=== PATIENT | female | born 1980 | race Asian ===

== ENCOUNTER → 2021-08-10 15:42 | Outpatient (CLI) | payer OTHER, MEDICAID, SELFPAY ==
[2021-08-10 16:22] LABS: COVID19 -Nasal RAPID Negative (Negative)
== END ==
PROVIDERS: Family Provider Obstetrics & Gynecology; Visit Provider Nurse Practitioner Family
DX: Z20.822 Contact with and (suspected) exposure to COVID-19 (principal); J02.9 Acute pharyngitis, unspecified
CPT/HCPCS: 87635

== ENCOUNTER → 2024-05-02 08:26 | Outpatient (CLI) | payer OTHER, MEDICAID, SELFPAY ==
--- NOTE | 2024-05-02 | DI.US.S_ITS ---
PROCEDURE: US PELVIC COMPLETE INDICATIONS: PELVIC PAIN TECHNIQUE: Real-time scanning was performed of the pelvic organs, with image documentation. Additional endovaginal scanning was necessary due to incomplete visualization of the adnexal and endometrial structures by transabdominal scanning. COMPARISON: US, OB COMPLETE 14WKS OR MORE, 03/17/2016, 16:14. FINDINGS: Uterus: Uterus is anteverted and normal in size at 7.4 x 3.4 cm. The myometrium is heterogeneous. The endometrium measures 5 mm combined thickness. Small cystic focus is present within the endometrium measuring 5 mm. Ovaries: The right ovary measures 1.9 x 1.3 x 1.4 cm, with a calculated ovarian volume of 1.7 cc. The left ovary measures 2.3 by 2.9 x 1.0 cm, with a calculated ovarian volume of 1.2 cc. The ovaries have a normal sonographic appearance. Less than 12 follicles can be seen in each ovary. No adnexal masses are seen. Other: No pathologic free abdominal or pelvic fluid. IMPRESSION: Small cystic focus measuring 5 mm is present within the endometrium overall nonspecific. We strive to produce accurate, complete, and clear reports of imaging services. To assist us in improving patient care, this report was composed using standard report templates and voice recognition software. Therefore, it may contain abnormal punctuation, insertions and/or omissions. Occasional wrong-word or sound-alike substitutions may occur. Though we review the report and make efforts to correct it, we do recommend that the report be read carefully in proper context to recognize any text inaccuracies. Dictated by: Fabiana Denise M.D. on 05/02/2024 at 15:08 Approved by: Fabiana Denise M.D. on 05/02/2024 at 15:10
== END ==
PROVIDERS: Family Provider Obstetrics & Gynecology; Referring Provider Registered Nurse; Visit Provider Registered Nurse
DX: R10.2 Pelvic and perineal pain (principal)
CPT/HCPCS: 76856

== ENCOUNTER 2024-05-04 15:11 | Emergency (ER) | payer OTHER, MEDICAID, SELFPAY ==
[2024-05-04] VITALS (9 sets, daily range): BP systolic 116–141; BP diastolic 53–83; PULSE 63–84; RESP 12–18; TEMP 36.6; O2SAT 96–100; BMI 32.5
[2024-05-04 16:02] LABS: Add Manual Diff / Slide Review NO; Basophils Absolute Auto 0 /uL (0-100); Basophils Percent Auto 0.6 % (0-2); Eosinophils Absolute Auto 200 /uL (0-450); Eosinophils Percent Auto 1.9 % (2-4); Hematocrit 44.2 % (36-46); Hemoglobin 15.1 g/dL (12.0-16.0); Lymphocytes Absolute Auto 2300 /uL (1100-4500); Lymphocytes Percent Auto 28.2 % (25-40); Mean Corpuscular HGB Conc 34.1 % (30-36); Mean Corpuscular Hemoglobin 31.5 PG (26-34); Mean Corpuscular Volume 92.3 fL (80-100); Monocytes Absolute Auto 400 /uL (0-900); Monocytes Percent Auto 4.6 % (3-14); Neutrophils Absolute Auto 5400 /uL (1500-7000); Neutrophils Percent Auto 64.7 % (50-75); Platelet Count 406 X10^3/uL (150-400); Red Blood Cell Count 4.79 X10^6/uL (4.0-5.2); Red Cell Distribution Width 12.9 % (11.6-14.8); White Blood Cell Count 8.3 X10^3/uL (4.5-11.0)
[2024-05-04 16:23] LABS: BUN Creatinine Ratio 8.2 (6-22); Blood Urea Nitrogen 7 mg/dL (7-17); Calcium 8.9 mg/dL (8.4-10.2); Carbon Dioxide 23 mmol/L (22-32); Chloride 111 mmol/L (98-107); Estimated Glomerular Filt Rate > 60 mL/min (>60); Glucose 126 mg/dL (70-100); HEMOLYSIS 16 (0-50); Potassium 4.2 mmol/L (3.4-5.1); Sodium 141 mmol/L (137-145)
[2024-05-04 16:30] LABS: Bacteria Urine None Seen; RBC Urine None Seen (0-5/HPF); Squamous Epithelial Cell Urine 0-1 /HPF (0-5/HPF); Urine Volume 10mL (spun); WBC Urine None Seen (0-5/HPF)
[2024-05-04 16:31] LABS: Culture Indicated Urine Cult Not Indicated
--- NOTE | 2024-05-05 01:54 | ED_ITS ---
HPI - Female Genitourinary General Chief complaint: Urogenital-Female Stated complaint: thinks having kidney issues Time Seen by Provider: 05/04/24 15:46 Source: patient Mode of arrival: Ambulatory History of Present Illness HPI Narrative: Patient left without seeing provider Related Data Previous Rx's Medication Instructions Recorded cyclobenzaprine 5 mg tablet 5 mg PO BEDTIME PRN muscle spasm 09/08/21 #10 tabs Allergies Allergy/AdvReac Type Severity Reaction Status Date / Time No Known Drug Allergies Allergy Verified 09/08/21 13:53 Exam Initial Vital Signs Initial Vital Signs: Vital Signs Temperature 97.8 F 05/04/24 15:19 Pulse Rate 84 05/04/24 15:19 Respiratory Rate 12 05/04/24 15:19 Blood Pressure 131/69 05/04/24 15:19 Pulse Oximetry 96 05/04/24 15:19 Oxygen Delivery Method Room Air 05/04/24 15:19 Course Vital Signs Vital signs: Vital Signs - 8 hr 05/04/24 19:15 05/04/24 20:00 05/04/24 20:04 Pulse Rate 72 68 72 Respiratory Rate 16 18 Blood Pressure 141/61 H 120/53 L Pulse Oximetry 97 98 100 Oxygen Delivery Method Room Air Room Air 05/04/24 20:30 05/04/24 20:30 05/04/24 21:00 Pulse Rate 68 69 Respiratory Rate Blood Pressure 116/65 Pulse Oximetry 97 97 Oxygen Delivery Method 05/04/24 21:00 05/04/24 21:30 05/04/24 21:31 Pulse Rate 63 63 Respiratory Rate Blood Pressure 116/83 Pulse Oximetry 97 97 Oxygen Delivery Method 05/04/24 21:31 05/04/24 22:00 05/04/24 22:00 Pulse Rate 70 Respiratory Rate Blood Pressure 130/79 120/61 Pulse Oximetry 97 Oxygen Delivery Method MDM - Female Genitourinary Lab Data 05/04/24 15:55 05/04/24 15:55 Labs: Lab Results 05/04/24 05/04/24 Range/Units 15:36 15:55 WBC 8.3 (4.5-11.0) X10^3/uL RBC 4.79 (4.0-5.2) X10^6/uL Hgb 15.1 (12.0-16.0) g/dL Hct 44.2 (36-46) % MCV 92.3 (80-100) fL MCH 31.5 (26-34) PG MCHC 34.1 (30-36) % RDW 12.9 (11.6-14.8) % Plt Count 406 H (150-400) X10^3/uL Neut % (Auto) 64.7 (50-75) % Lymph % (Auto) 28.2 (25-40) % [place] % (Auto) 4.6 (3-14) % Eos % (Auto) 1.9 L (2-4) % Baso % (Auto) 0.6 (0-2) % Neut # (Auto) 5400 (5848-1182) /uL Lymph # (Auto) 2300 (2425-1798) /uL [place] # (Auto) 400 (0-900) /uL Eos # (Auto) 200 (0-450) /uL Baso # (Auto) 0 (0-100) /uL Sodium 141 (137-145) mmol/L Potassium 4.2 (3.4-5.1) mmol/L Chloride 111 H (98-107) mmol/L Carbon Dioxide 23 (22-32) mmol/L BUN 7 (7-17) mg/dL Creatinine 0.85 (0.52-1.04) mg/dL Estimated GFR > 60 (>60) mL/min BUN/Creatinine Ratio 8.2 (6-22) Glucose 126 H (70-100) mg/dL Calcium 8.9 (8.4-10.2) mg/dL Urine RBC None seen (0-5/HPF) Urine WBC None seen (0-5/HPF) Ur Squamous Epith Cells 0-1 /hpf (0-5/HPF) Urine Bacteria None seen (None) Ur Culture Indicated? Cult not indicated Vol Urine Centrifuged 10ml (spun) Point of Care Testing Test Results Negative Urine Dip Bedside Urine Glucose Negative Bedside Urine Bilirubin - Negative Bedside Urine Ketone - Negative Urine Specific [place] 1.015 Bedside Urine Occult Blood - Negative Bedside Urine pH 6.0 Bedside Urine Protein +/- 15 Bedside Urine Urobilinogen - Negative Bedside Urine Nitrite - Negative Bedside Urine Leukocytes - Negative Esterase Discharge Plan Departure Patient Disposition: Left Without Being Seen Clinical Impression: Patient left without being seen, Patient left before evaluation by physician Prescriptions: No Action cyclobenzaprine 5 mg tablet 5 mg PO BEDTIME PRN (Reason: muscle spasm) Qty: 10 0RF
== END 2024-05-04 23:00 | disposition left against medical advice (07) ==
PROVIDERS: Emergency Medicine; Emergency Provider Emergency Medicine; Family Provider Obstetrics & Gynecology
DX: R10.9 Unspecified abdominal pain (principal)
CPT/HCPCS: 36415; 80048; 81003; 81015; 81025; 85025; 99283